=== PATIENT | female | born 1960 | race Two or more races ===

== ENCOUNTER 2020-01-21 06:59 | Inpatient (IN) | payer MEDICAID ==
[2020-01-21] VITALS (16 sets, daily range): BP systolic 111–142; BP diastolic 57–81
[~2020-01-21] VITALS: Ht 157.5 cm; Wt 77.1 kg
[2020-01-21] MEDS ORDERED: Rocuronium Bromide 100mg/10ml Inj IV ONE ×2 (07:16→09:35)
[2020-01-21] MEDS ORDERED: LOSARTAN POTASS50 MG ORAL (08:26)
[2020-01-21] MEDS ORDERED: HYDROCHLOROTH12.5 MG ORAL (08:27)
[2020-01-21] MEDS ORDERED: GLUCOPHAGE500 MG ORAL (08:27)
[2020-01-21] MEDS ORDERED: AMLODIPINE BESY10 MG ORAL (08:28)
[2020-01-21] MEDS ORDERED: ATORVASTATIN CA20 MG ORAL (08:29)
[2020-01-21] MEDS ORDERED: Glycopyrrolate 0.2mg/ml 1ml Vial ONE ×2 (09:00→11:37)
[2020-01-21] MEDS ORDERED: Sterile Water Irrig 1000ml IRRIG ONE (09:00)
[2020-01-21] MEDS ORDERED: LR 1000ml ONE (09:00)
[2020-01-21] MEDS ORDERED: NS Irrig 1000ml ONE (09:00)
[2020-01-21] MEDS ORDERED: Bupivacaine 0.5% Inj 30 ml vial INJ ONE (09:01)
[2020-01-21] MEDS ORDERED: NS Irrig 2000ml IRRIG ONE (09:04)
--- NOTE | 2020-01-21 09:24 | Pre-Procedure Note/Attestation ---
Pre-Procedure Note/Attestation Complete Prior to Procedure Planned Procedure: right Procedure Narrative: laparoscopic radical vs partial nephrectomy right Indications for Procedure Pre-Operative Diagnosis: renal mass Attestation I attest that I discussed the nature of the procedure; its benefits; risks and complications; and alternatives (and the risks and benefits of such alternatives ), prior to the procedure, with the patient (or the patient's legal circulation sales representative). I attest that, if there was a reasonable possibility of needing a blood transfusion, the patient (or the patient's legal circulation sales representative) was given the [facility] standardized written summary, pursuant to the Jorge Medon Blood Safety Act ([place] Health and Safety Code # 1645, as amended). I attest that I re-evaluated the patient just prior to the surgery and that there has been no change in the patient's H&P, except as documented below: Lobito Yoon MD Jan 21, 2020 09:24
[2020-01-21] MEDS ORDERED: Succinylcholine 20mg/ml 10ml vial ONE (09:35)
[2020-01-21] MEDS ORDERED: Morphine Sulfate 10mg/ml Inj ONE (09:35)
[2020-01-21] MEDS ORDERED: Midazolam 2mg/2ml Inj ONE (09:35)
[2020-01-21] MEDS ORDERED: Lidocaine 1% MPF 10mg/ml 5ml ONE (11:37)
[2020-01-21] MEDS ORDERED: ePHEDrine 50mg/ml Inj ONE (11:37)
[2020-01-21] MEDS ORDERED: Metoclopramide 10mg/2ml Inj ONE (11:37)
[2020-01-21] MEDS ORDERED: Phenylephrine 10mg/ml Vial ONE (11:37)
[2020-01-21] MEDS ORDERED: Neostigmine 1mg/ml 10ml Inj ONE (11:37)
--- NOTE | 2020-01-21 12:05 | Anethesia Preoperative Eval ---
Anesthesia Pre-op PMH/ROS General Date of Evaluation: Jan 21, 2020 Time of Evaluation: 09:15 Anesthesiologist: kailey ASA Score: ASA 3 Mallampati Score Class I : Soft palate, uvula, fauces, pillars visible Class II: Soft palate, uvula, fauces visible Class III: Soft palate, base of uvula visible Class IV: Only hard plate visible Mallampati Classification: Class II Surgeon: glynn Diagnosis: renal mass Surgical Procedure: Lap radical nephrectomy Anesthesia History: none Family History: no anesthesia problems Allergies: Coded Allergies: PENICILLINS (Verified Allergy, Severe, Rash;swelling, 01/19/20) Medications: see eMAR Patient NPO?: Yes NPO Date: Jan 21, 2020 NPO Time: 00:01 Past Medical History Cardiovascular: Reports: HTN Pulmonary: Denies: asthma, COPD, ALEX, other Gastrointestinal/Genitourinary: Denies: GERD, CRI, ESRD, other Neurologic/Psychiatric: Denies: dementia, CVA, depression/anxiety, TIA, other Endocrine: Reports: DM; Denies: hypothyroidism, steroids, other HEENT: Denies: cataract (L), cataract (R), glaucoma, [place] (L), [place] (R), other Hematology/Immune: Reports: anemia; Denies: DVT, bleeding disorder, other Musculoskeletal/Integumentary: Denies: OA, RA, DJD, DDD, edema, other Other: obesity PMH Narrative: mediastinal mass Anesthesia Pre-op Phys. Exam Physician Exam Last Vital Signs Date Time Temp Pulse Resp B/P (MAP) Pulse Ox O2 Delivery O2 Flow Rate FiO2 01/21/20 08:20 Room Air 01/21/20 07:32 98.2 106 18 142/81 (101) 99 Constitutional: NAD Neurologic: CN 2-12 intact Cardiovascular: RRR Respiratory: CTA Gastrointestinal: S/NT/ND Airway Exam Mallampati Classification 2 Mallampati Score: Class II Neck: thick ROM: full Teeth: missing Dentures: no upper, no lower Anesthesia Pre-op A/P Labs bs = 98 Studies Pre-op Studies: EKG - SR Risk Assessment & Plan Assessment: mediastinal mass noted on CXR- no sob when lying down, dr. maki is aware Plan: general/T&Cx2 Pre-Antibiotics Drug: ancef Given Within 1 Hr of Incision: Yes Time Given: 09:30 Gabriella Cline COMPRESSION MOLDING MACHINE OPERATOR Jan 21, 2020 12:05
--- NOTE | 2020-01-21 12:05 | Immediate Post-Op Evaluation ---
Immediate Post-Op Evalulation Immediate Post-Op Evalulation Procedure: radical rigtht nephrectomy Date of Evaluation: Jan 21, 2020 Time of Evaluation: 12:04 IV Fluids: 1800 Blood Products: 150 Estimated Blood Loss: 500 Urinary Output: 150 Blood Pressure Systolic: 108 Blood Pressure Diastolic: 60 Pulse Rate: 75 Respiratory Rate: 14 O2 Sat by Pulse Oximetry: 99 Temperature (Fahrenheit): 97.5 Nausea: No Vomiting: No Complications none Patient Status: awake, reacts, patent Hydration Status: adequate Drug: ancef Given Within 1 Hr of Incision: Yes Time Given: 09:30 Gabriella Cline CRNA Jan 21, 2020 12:05
--- NOTE | 2020-01-21 12:23 | Brief Operative Note ---
Immediate Post Operative Note Operative Note Pre-op Diagnosis: renal mass Procedure: Right radical nephrectomy Post-op Diagnosis: same Post-op Diagnosis: same as pre-op Surgeon: Albert Yoon Anesthesia: general Specimen: yes Complications: none Condition: stable Fluids: 1000 Estimated Blood Loss: minimal Drains: none Implant(s) used?: No Lobito Yoon MD Jan 21, 2020 12:23
[2020-01-21] MEDS ORDERED: fentaNYL 100 mcg/2 mL IV PRN (12:29)
[2020-01-21] MEDS ORDERED: Hydromorphone 0.5mg/0.5ml inj IVP PRN (12:30)
--- NOTE | 2020-01-21 13:05 | NUR ---
CASE MANAGEMENT: INITIAL REVIEW 59YR OLD FEMALE HERE FOR ELECTIVE SURGERY CC:RENAL MASS SI:RIGHT RADICAL NEPHRECTOMY 98.2 106 18 142/81 99% ON SIMPLE MASK 6L IS:IVF NS BOLUS X1 IN SURGERY NOW LAPAROSCOPIC RIGHT NEPHRECTOMY \: RECOVERY ROOM
[2020-01-21 13:58] LABS: HEMATOCRIT 35.5 % (37.0-47.0); HEMOGLOBIN 11.7 G/DL (12.0-16.0); MEAN CORPUSCULAR VOLUME 79 FL (80-99); PLATELET COUNT 197 K/UL (150-450); RED CELL DISTRIBUTION WIDTH 13.3 % (11.6-14.8); WHITE BLOOD COUNT 17.6 K/UL (4.8-10.8)
--- NOTE | 2020-01-21 14:06 | NUR ---
*-* INSURANCE *-* ALL CLINICALS AND REVIEWS HAVE BEEN FAXED TO: RENU Claros Ref# [id number] ph#[phone] fax#[phone] & MARINA ph#[phone] fax#[phone]
--- NOTE | 2020-01-21 14:10 | NUR ---
NURSE NOTES: Received patient from PACU. Patient is arousable to hr name but looks lethargic and sleep @ this time. Patient verbally responsive to her name @ this time. Patient is able to make her needs known. Patient said she has mild pain on abdomen. Patient is s/p laparoscopic right nephrostomy, noted with 4 dressings on abdomen, dressing is C/D/I, no visible bleeding. 2 IV's intact, no s/s of infiltration. Fraser 16fr is in place, draining yellowish urine. Skin assessment done, no pressure ulcer, skin break or swelling. No s/s of hypoglycemia. Dr. Desouza was paged to verify home medication and RT was called for IS. V/S stable. Bed is in lowest position and locked. Call light within reach, instructed patient to press call button if needed. Will continue plan of care. Patient's lower partial denture is @ the bedside. home meds brought to the pharmacy. Receipt # [id number]. per report patient received 2 units of PRBC. No s/s of late adverse reaction from blood transfusion.Will continue plan of care.
[2020-01-21 14:36] LABS: ANION GAP 13 mmol/L (5-15); BLOOD UREA NITROGEN 18 mg/dL (7-18); CALCIUM 8.3 MG/DL (8.5-10.1); CARBON DIOXIDE 25 MMOL/L (21-32); CHLORIDE 105 MMOL/L (98-107); CREATININE 1.3 MG/DL (0.55-1.30); POTASSIUM 3.4 MMOL/L (3.5-5.1); SODIUM 143 MMOL/L (136-145)
--- NOTE | 2020-01-21 15:10 | NUR ---
NURSE NOTES: v/S stable. patient is more awake @ this time.Not in respiratory/cardiac distress.
[2020-01-21] MEDS: D5 1/2NS w/KCl 20mEq 1,000 ML IV SCH (16:31)
[2020-01-21] MEDS: ceFAZolin 2gm/50ml Premix 50 ML IV SCH (16:32)
[2020-01-21] MEDS ORDERED: ceFAZolin sod 2 GM in D5W 110 ML IV SCH (17:00)
--- NOTE | 2020-01-21 17:00 | NUR ---
NURSE NOTES: paged Dr. Desouza again to ask if he wants to continue home meds.Awaiting for return call.
[2020-01-21] MEDS: Docusate 100mg cap ORAL SCH (17:45)
[2020-01-21] MEDS: HYDROcodone/Acetamin 5/325 tab ORAL PRN ×2 (17:46→22:07)
--- NOTE | 2020-01-21 17:46 | NUR ---
NURSE NOTES: Patient asked for pain meds. Given PRN pain meds as ordered. Patient is fully awake @ this time. On NPO but tolerated well to po meds.
--- NOTE | 2020-01-21 18:18 | NUR ---
NURSE NOTES: Urine output from murrell is 600,pale yellowish colored urine noted.
--- NOTE | 2020-01-21 19:34 | NUR ---
HAND-OFF: Report given to Oh and endorsed plan of care.
--- NOTE | 2020-01-21 19:35 | NUR ---
NURSE NOTES: Receive a report from NISHANT Mclaughlin. Round is done. Pt is asleep but easily aroused. Tamazight speaking. No acute distress noted. Surgical site dressing kept dry and clean. Yellowish urine is patent via murrell catheter without hematuria or sediments. Call light within reach. Will continue to monitor.
[2020-01-21] MEDS: NovoLOG Insulin Flexpen SUBQ SCH (22:08)
--- NOTE | 2020-01-21 22:30 | Operative Note - Dictated ---
DATE OF OPERATION: 01/21/2020 PREOPERATIVE DIAGNOSIS: Large 10 cm right renal mass. POSTOPERATIVE DIAGNOSIS: Large 10 cm right renal mass. OPERATION: Laparoscopic radical nephrectomy. OPERATED BY: Lobito Yoon MD. ANESTHESIA: General. FINDINGS: Large very vascular renal mass of the right kidney. INDICATIONS FOR SURGERY: Patient most likely has metastatic renal cancer with a very large right renal mass. She had multiple episodes of severe bleeding from the mass and hematuria. She was hospitalized. I discussed with the patient all the treatment options and explained to get a staged approach with first removal of the primary tumor and then possible chemotherapy and immunotherapy by oncologist. She understands the nature of the procedure and this treatment strategy as well as all the risks and potential complications. I have warned her about potential open conversion if the tumor would be very bloody and difficult to resect. She signed a consent. DESCRIPTION OF PROCEDURE: Brought to the operating room, placed in right lateral decubitus position. Prepped and draped in standard fashion. Under general anesthesia, a midline infraumbilical incision was made. A hand port was placed in the standard position and 3 trocars, two 12 and one 5 was placed in the standard position. Pneumoperitoneum was created to 15 mmHg. The limb was retracted with a self-retaining Whit grasper and dissected carefully from the upper pole of the kidney. Dissection started with lower pole mobilizing the ureter, which was clipped and severed with Endo-CATHY. Further dissection behind the kidney towards the psoas muscle was uneventful with electrocautery and clips. Dissection towards the renal pedicle was not complicated. Several additional aberrant large veins including was clipped and severed between hemoclips and then the renal pedicle was mobilized. CATHY 45 vascular was applied. After the pedicle was transected, it was noticed that the CATHY misfired and a distal tip of the clips were not closing the adjacent part of the renal artery. There was some brisk, but not significant bleeding, which was stopped with my finger. We grasper to hold the bleeding vessel. After that, the rest of the kidney was dissected using Endo-CATHY sharp and blunt dissection and removed. After the good exposure of the renal pedicle, it became clear that there was a secondary vessel inside the pedicle that was not transected appropriately with Endo-CATHY. Holding it with a grasper, I oversewn it with multiple [id number] 3-0 Prolene sutures and tied. Bleeding stopped. We spend another 15 minutes looking around deflating pneumoperitoneum to seal and looking if there is any potential for rebleed at that time within 15 to 20 minutes. There was no evidence of further bleeding. There was area of the adrenal that was also giving some hemorrhage. It was clipped and coagulated and bleeding stopped completely. After that, the Surgicel and FloSeal was placed at the area of the adrenal and the pedicle. Further inspection showed no evidence of additional bleeding. Blood loss was approximately 300 mL. Bowel was placed in its normal position and wound was closed with running 0 Vicryl sutures and elizabeth for the skin. Sponge count, instrument count was correct. Lobito Yoon M.D. DR: JOSE JOB#: [id number] CC:
[2020-01-22] VITALS: BP 143/68
[2020-01-22] MEDS: ceFAZolin 2gm/50ml Premix 50 ML IV SCH (01:04)
[2020-01-22] MEDS: D5 1/2NS w/KCl 20mEq 1,000 ML IV SCH ×3 (02:35→22:28)
[2020-01-22 04:00] VITALS: BP 138/73
--- NOTE | 2020-01-22 06:00 | NUR ---
NURSE NOTES: No acute distress noted. Pt got one time of pain medication, one time of Zofran and a sleeping pill overnight. Surgical site dressing kept dry and clean. Will continue to monitor. 12hr urine output: 1350ml
[2020-01-22 06:26] LABS: BASOPHILS % (AUTO) 0.2 % (0.0-2.0); HEMATOCRIT 36.1 % (37.0-47.0); HEMOGLOBIN 12.1 G/DL (12.0-16.0); LYMPHOCYTES % (AUTO) 11.4 % (20.0-45.0); MEAN CORPUSCULAR VOLUME 78 FL (80-99); MONOCYTES % (AUTO) 7.7 % (1.0-10.0); NEUTROPHILS % (AUTO) 80.8 % (45.0-75.0); PLATELET COUNT 179 K/UL (150-450); RED BLOOD COUNT 4.64 M/UL (4.20-5.40); RED CELL DISTRIBUTION WIDTH 12.9 % (11.6-14.8); WHITE BLOOD COUNT 9.8 K/UL (4.8-10.8)
[2020-01-22 06:59] LABS: ANION GAP 12 mmol/L (5-15); BLOOD UREA NITROGEN 9 mg/dL (7-18); CALCIUM 8.5 MG/DL (8.5-10.1); CARBON DIOXIDE 26 MMOL/L (21-32); CHLORIDE 100 MMOL/L (98-107); CREATININE 1.1 MG/DL (0.55-1.30); POTASSIUM 3.1 MMOL/L (3.5-5.1); SODIUM 138 MMOL/L (136-145)
[2020-01-22] MEDS: NovoLOG Insulin Flexpen SUBQ SCH ×4 (07:04→21:00)
--- NOTE | 2020-01-22 07:15 | NUR ---
HAND-OFF: Report given to NISHANT Crawford. Round is done.
--- NOTE | 2020-01-22 07:30 | NUR ---
NURSE NOTES: Handoff received from O RN. Patient is awake and alert, reports 3/10 pain, will medicate as ordered. Dressings are dry and intact. Left hand IV is patent and asymptomatic, running IVF as ordered. Fraser catheter is patent and draining to gravity. Patient encouraged to use IS at bedside. Oral care provided. Bed is low and locked, side rails up x2, call light is within reach.
[2020-01-22 08:00] VITALS: BP 126/70
[2020-01-22] MEDS: Docusate 100mg cap ORAL SCH ×2 (08:05→18:00)
[2020-01-22] MEDS: HYDROcodone/Acetamin 5/325 tab ORAL PRN ×2 (08:06→15:03)
--- NOTE | 2020-01-22 08:37 | 48 Hour Post Anesthesia Eval ---
Post Anesthesia Evaluation Procedure: radical rigtht nephrectomy Date of Evaluation: Jan 22, 2020 Time of Evaluation: 08:37 Blood Pressure Systolic: 138 0: 70 Pulse Rate: 65 Respiratory Rate: 14 O2 Sat by Pulse Oximetry: 99 Airway: patent Nausea: No Vomiting: No Pain Intensity: 4 Hydration Status: adequate Cardiopulmonary Status: stable Mental Status/LOC: patient returned to baseline Post-Anesthesia Complications: none Follow-up care needed: N/A Gabriella Cline CRNA Jan 22, 2020 08:37
[2020-01-22] MEDS ORDERED: DiphenhydrAMINE 50mg/ml Inj IVP PRN (10:15)
[2020-01-22 12:00] VITALS: BP 131/72
[2020-01-22 16:00] VITALS: BP 129/80
--- NOTE | 2020-01-22 16:01 | NUR ---
CASE MANAGEMENT: REVIEW 01/22/20 SI:S/P RIGHT RADICAL NEPHRECTOMY 99.2 80 20 131/72 97% ON RA IS:IV D5@100ML/HR NORCO PO Q4HR/PRN \: 3E MED SURG UNIT PLAN: START ON CLEARS DC GUILLEN ADVANCE DIET TOLERATE
--- NOTE | 2020-01-22 16:35 | Consultation ---
History of Present Illness General Date patient seen: Jan 22, 2020 Present Illness HPI 59 year old female s/p right radical nephrectomy currently admitted for post op noted to have leukocytosis, pain, and decreased appetite. surgery called to evaluate post op. patient seen, chart reviewed, patient examined. no emesis. not hungry. no flatus. no bm. abd examined. labs noted. h/h noted Allergies: Coded Allergies: PENICILLINS (Verified Allergy, Severe, Rash;swelling, 01/19/20) COVID-19 Screening Contact w/high risk pt: No Recent Travel to affected area: No Experienced COVID-19 symptoms?: No Medication History Scheduled Amlodipine Besylate* (Amlodipine Besylate*), 10 MG ORAL DAILY, (Reported) Atorvastatin Calcium* (Atorvastatin Calcium*), 10 MG ORAL BEDTIME, (Reported) Hydrochlorothiazide* (Hydrochlorothiazide*), 12.5 MG ORAL DAILY, (Reported) Losartan Potassium* (Losartan Potassium*), 100 MG ORAL DAILY, (Reported) Metformin Hcl* (Glucophage*), 500 MG ORAL TWICE A DAY, (Reported) Patient History History Provided By: Patient, Medical Record, PMD Healthcare decision maker N Resuscitation status Advanced Directive on File Past Medical/Surgical History Past Medical/Surgical History: (1) Right renal mass Review of Systems Review of Symptoms General ROS: no weight loss or fever Psychological ROS: no depression or mood changes, no memory loss Ophthalmic ROS: no visual changes or eye irritation ENT ROS: no nasal congestion, hearing loss, dizziness Allergy and Immunology ROS: no allergic symptoms or urticaria Hematological and Lymphatic ROS: no swollen glands, unusual bleeding or bruising Endocrine ROS: no polyuria, polydipsia, weight changes, temperature intolerance Respiratory ROS: no cough, shortness of breath, or wheezing Cardiovascular ROS: no chest pain or dyspnea on exertion Gastrointestinal ROS: abdominal pain, bright red blood in stool. Musculoskeletal ROS: no myalgias or arthralgias Neurological ROS: no TIA or stroke symptoms Dermatological ROS: no new or changing skin lesions, rashes or pruritis Physical Exam Physical Exam General appearance: alert, cooperative, no distress, appears stated age Head: Normocephalic, without obvious abnormality, atraumatic Eyes: conjunctivae/corneas clear. PERRL, EOM's intact. Fundi benign Throat: Lips, mucosa, and tongue normal. Teeth and gums normal Neck: supple, symmetrical, trachea midline, no adenopathy, thyroid: not enlarged, symmetric, no tenderness/mass/nodules, no carotid bruit and no JVD Lungs: clear to auscultation bilaterally Heart: regular rate and rhythm, S1, S2 normal, no murmur, click, rub or gallop Abdomen: soft, mild tender. Bowel sounds decreased . No masses, no organomegaly mild distended Extremities: extremities normal, atraumatic, no cyanosis or edema Pulses: 2+ and symmetric Skin: Skin color, texture, turgor normal. No rashes or lesions Neurologic: Grossly normal Last 24 Hour Vital Signs Date Time Temp Pulse Resp B/P (MAP) Pulse Ox O2 Delivery O2 Flow Rate FiO2 01/22/20 12:00 99.2 80 20 131/72 (91) 94 01/22/20 09:00 Room Air 01/22/20 08:37 65 14 99 01/22/20 08:36 98.7 01/22/20 08:00 99.0 73 18 126/70 (88) 95 01/22/20 04:00 98.7 66 18 138/73 (94) 96 01/22/20 00:00 98.8 70 18 143/68 (93) 95 01/21/20 21:00 Nasal Cannula 2.0 01/21/20 20:00 98.3 73 18 141/75 (97) 97 Intake and Output 01/21/20 01/22/20 19:00 07:00 Intake Total 2600 ml 1200 ml Output Total 1550 ml Balance 1050 ml 1200 ml Intake Oral 0 ml IV Total 2100 ml 1200 ml Blood Product 500 ml Output Urine Total 1050 ml Estimated Blood Loss 500 ml # Voids 1 Laboratory Tests Test 01/22/20 05:15 White Blood Count 9.8 K/UL (4.8-10.8) Red Blood Count 4.64 M/UL (4.20-5.40) Hemoglobin 12.1 G/DL (12.0-16.0) Hematocrit 36.1 % (37.0-47.0) L Mean Corpuscular Volume 78 FL (80-99) L Mean Corpuscular Hemoglobin 26.0 PG (27.0-31.0) L Mean Corpuscular Hemoglobin Concent 33.4 G/DL (32.0-36.0) Red Cell Distribution Width 12.9 % (11.6-14.8) Platelet Count 179 K/UL (150-450) Mean Platelet Volume 8.8 FL (6.5-10.1) Neutrophils (%) (Auto) 80.8 % (45.0-75.0) H Lymphocytes (%) (Auto) 11.4 % (20.0-45.0) L Monocytes (%) (Auto) 7.7 % (1.0-10.0) Eosinophils (%) (Auto) 0.0 % (0.0-3.0) Basophils (%) (Auto) 0.2 % (0.0-2.0) Sodium Level 138 MMOL/L (136-145) Potassium Level 3.1 MMOL/L (3.5-5.1) L Chloride Level 100 MMOL/L (98-107) Carbon Dioxide Level 26 MMOL/L (21-32) Anion Gap 12 mmol/L (5-15) Blood Urea Nitrogen 9 mg/dL (7-18) Creatinine 1.1 MG/DL (0.55-1.30) Estimat Glomerular Filtration Rate 50.8 mL/min (>60) Glucose Level 150 MG/DL (74-106) H Calcium Level 8.5 MG/DL (8.5-10.1) Height (Feet): 5 Height (Inches): 2.00 Weight (Pounds): 170 Medications Current Medications Medications (Trade) Dose Ordered Sig/[place] Route PRN Reason Start Time Stop Time Status Last Admin Dose Admin Acetaminophen (Tylenol) 650 mg Q4H PRN ORAL FEVER 01/21/20 14:25 02/20/20 14:24 Acetaminophen (Tylenol) 650 mg Q6H PRN ORAL Mild Pain (Pain Scale 1-3) 01/21/20 14:25 02/20/20 14:24 Acetaminophen/ Hydrocodone Bitart ([place]den 5/325) 1 tab Q4H PRN ORAL Moderate Pain (Pain Scale 4-6) 01/21/20 14:26 01/28/20 14:25 01/22/20 15:03 Dextrose (Dextrose 50%) 25 ml Q30M PRN IV Hypoglycemia 01/21/20 21:15 04/20/20 21:14 Dextrose (Dextrose 50%) 50 ml Q30M PRN IV Hypoglycemia 01/21/20 21:15 04/20/20 21:14 Dextrose/ Electrolytes 1,000 ml @ 100 mls/hr Q10H IV 01/21/20 16:00 02/20/20 15:59 01/22/20 12:54 Diphenhydramine HCl (Benadryl) 25 mg Q6H PRN IVP Itching 01/22/20 10:15 02/21/20 10:14 01/22/20 11:10 Docusate Sodium (Colace) 100 mg TWICE A DAY ORAL 01/21/20 18:00 02/20/20 17:59 01/22/20 08:05 Hydromorphone HCl (Dilaudid) 2 mg Q3H PRN IVP pain score 7-10 01/21/20 14:26 01/28/20 14:25 Insulin Aspart (NovoLOG) BEFORE MEALS AND HS SUBQ 01/21/20 22:00 04/20/20 21:59 01/22/20 07:04 Ondansetron HCl (Zofran) 4 mg Q6H PRN IVP Nausea & Vomiting 01/21/20 14:25 02/20/20 14:24 01/22/20 01:59 Temazepam (RestoriL) 7.5 mg QHS PRN ORAL Insomnia 01/21/20 21:00 01/28/20 20:59 01/22/20 02:34 Assessment/Plan Problem List: (1) Right renal mass Assessment & Plan: 59 year old female s/p radical right nephrectomy for mass pending path c/o abd pain decreased appetite exam noted patient not motivated to move much post op will encourage ambulation and incentive spirometry d/c okay trial oral intake trend labs rx as written complaints anticipated post op will follow closely thank you ICD Codes: N28.89 - Other specified disorders of kidney and ureter SNOMED: [id number] Vladimir Payton Jan 22, 2020 16:35
--- NOTE | 2020-01-22 16:59 | NUR ---
*-* INSURANCE *-* UPDATED CLINICALS AND REVIEWS HAVE BEEN FAXED TO: RENU Claros Ref# [id number] ph#[phone] fax#[phone] & MARINA ph#[phone] fax#[phone]
--- NOTE | 2020-01-22 19:45 | Consultation ---
DATE OF CONSULTATION: 01/22/2020 INTERNAL MEDICINE CONSULTATION CONSULTING PHYSICIAN: Srini Desouza MD. HISTORY OF PRESENT ILLNESS: This is a 59-year-old female who has undergone a nephrectomy by Dr. Yoon. She was uncomplicated. She is doing well in the medical floor. She is only Bulgarian-speaking. PAST MEDICAL HISTORY: Hypertension, hyperlipidemia, diabetes mellitus. HOME MEDICATIONS: Amlodipine, Lipitor, hydrochlorothiazide, losartan, and metformin. ALLERGIES: To penicillin. REVIEW OF SYSTEMS: Denies any headaches, hematemesis, melena, hematochezia, night sweats, or weight loss. PHYSICAL EXAMINATION: GENERAL: Reveals a 59-year-old female. HEENT: Unremarkable. LUNGS: Clear breath sounds bilaterally. ABDOMEN: Soft. EXTREMITIES: There is no edema. VITAL SIGNS: Blood pressure 120/70, heart rate 84, respirations , she is afebrile. LABORATORY DATA: Lab testing shows hemoglobin of 12, otherwise normal CBC and BMP. Creatinine 1.1. IMPRESSION: 1. Postoperative day #1, status post nephrectomy. 2. Hypertension. 3. Diabetes mellitus. 4. Anemia. DISCUSSION: Continue postoperative care. Diabetes monitoring. We will add Benadryl. We will follow. Srini Desouza M.D. DR: JILLIAN JOB#: [id number] CC:
--- NOTE | 2020-01-22 19:48 | NUR ---
NURSE NOTES: Report received from NISHANT Monte. Patient in stable condition.
[2020-01-22 20:00] VITALS: BP 131/65
[2020-01-23] VITALS: BP 124/71
[2020-01-23 04:00] VITALS: BP 130/68
[2020-01-23] MEDS: NovoLOG Insulin Flexpen SUBQ SCH ×4 (06:30→21:00)
--- NOTE | 2020-01-23 06:59 | NUR ---
NURSE NOTES: Patient was able to ambulate with walker and standby assist. Voiding okay. Total urine output was 700mL, dark zofia urine. Patient denies any pain. Patient seen using the incentive spirometer frequently throughout the night. Patient is now sitting in a chair. Encouraged ambulation as much as possible. Pain controlled well with Dilaudid.
--- NOTE | 2020-01-23 07:32 | NUR ---
NURSE NOTES: Report given to Sonia DILLARD
--- NOTE | 2020-01-23 07:39 | NUR ---
NURSE NOTES: Received report from Felipe Rn, rounds made, pt stable ,up in chair,c/o of pain 12/27, will provide medication as ordered , pt has LT hand 18G with IVF, intact asymptomatic , call light with in reach, will continue with paln of care
[2020-01-23] MEDS: Docusate 100mg cap ORAL SCH ×2 (07:55→17:16)
[2020-01-23] MEDS: D5 1/2NS w/KCl 20mEq 1,000 ML IV SCH ×3 (07:55→23:00)
[2020-01-23 08:00] VITALS: BP 138/66
[2020-01-23 09:10] LABS: BASOPHILS % (AUTO) 0.5 % (0.0-2.0); HEMATOCRIT 33.7 % (37.0-47.0); HEMOGLOBIN 11.3 G/DL (12.0-16.0); LYMPHOCYTES % (AUTO) 11.9 % (20.0-45.0); MEAN CORPUSCULAR VOLUME 77 FL (80-99); MONOCYTES % (AUTO) 9.2 % (1.0-10.0); NEUTROPHILS % (AUTO) 77.4 % (45.0-75.0); PLATELET COUNT 160 K/UL (150-450); RED BLOOD COUNT 4.36 M/UL (4.20-5.40); RED CELL DISTRIBUTION WIDTH 12.9 % (11.6-14.8); WHITE BLOOD COUNT 10.1 K/UL (4.8-10.8)
[2020-01-23 09:32] LABS: ANION GAP 9 mmol/L (5-15); BLOOD UREA NITROGEN 5 mg/dL (7-18); CALCIUM 8.5 MG/DL (8.5-10.1); CARBON DIOXIDE 26 MMOL/L (21-32); CHLORIDE 102 MMOL/L (98-107); POTASSIUM 3.2 MMOL/L (3.5-5.1); SODIUM 137 MMOL/L (136-145)
--- NOTE | 2020-01-23 11:25 | NUR ---
*-* INSURANCE *-* UPDATED CLINICALS AND REVIEWS HAVE BEEN FAXED TO: RENU Claros Ref# [id number] ph#[phone] fax#[phone] & MARINA ph#[phone] fax#[phone]
--- NOTE | 2020-01-23 11:57 | Pulmonology Progress Note ---
Subjective Interval Events: None new Constitutional: Reports: no symptoms HEENT: Repors: no symptoms Respiratory: Reports: no symptoms Cardiovascular: Reports: no symptoms Gastrointestinal/Abdominal: Reports: no symptoms Allergies: Coded Allergies: PENICILLINS (Verified Allergy, Severe, Rash;swelling, 01/19/20) Objective Last 24 Hour Vital Signs Date Time Temp Pulse Resp B/P (MAP) Pulse Ox O2 Delivery O2 Flow Rate FiO2 01/23/20 09:00 Room Air 01/23/20 08:00 99.7 76 20 138/66 (90) 94 01/23/20 04:00 98.5 73 20 130/68 (88) 99 01/23/20 01:33 99.6 01/23/20 00:00 98.2 81 21 124/71 (88) 94 01/22/20 21:00 Room Air 01/22/20 20:00 99.6 74 19 131/65 (87) 94 01/22/20 16:00 98.8 83 18 129/80 (96) 94 01/22/20 12:00 99.2 80 20 131/72 (91) 94 Intake and Output 01/22/20 01/23/20 19:00 07:00 Output Total 950 ml Balance -950 ml Output Urine Total 950 ml General Appearance: no acute distress HEENT: normocephalic Respiratory: chest wall non-tender Cardiovascular: normal peripheral pulses Abdomen: normal bowel sounds Microbiology Date/Time Source Procedure Growth Status 01/21/20 07:45 Nasal Nares MRSA Culture - Final NO METHICILLIN RESISTANT STAPH AUREUS... Complete Laboratory Tests 01/23/20 08:30: White Blood Count 10.1, Red Blood Count 4.36, Hemoglobin 11.3L, Hematocrit 33.7L , Mean Corpuscular Volume 77L, Mean Corpuscular Hemoglobin 25.9L, Mean Corpuscular Hemoglobin Concent 33.5, Red Cell Distribution Width 12.9, Platelet Count 160, Mean Platelet Volume 8.4, Neutrophils (%) (Auto) 77.4H, Lymphocytes ( %) (Auto) 11.9L, Monocytes (%) (Auto) 9.2, Eosinophils (%) (Auto) 1.0, Basophils (%) (Auto) 0.5, Sodium Level 137, Potassium Level 3.2L, Chloride Level 102, Carbon Dioxide Level 26, Anion Gap 9, Blood Urea Nitrogen 5L, Creatinine 1.0, Estimat Glomerular Filtration Rate 56.8, Glucose Level 137H, Calcium Level 8.5 Current Medications Medications (Trade) Dose Ordered Sig/[place] Route PRN Reason Start Time Stop Time Status Last Admin Dose Admin Acetaminophen (Tylenol) 650 mg Q4H PRN ORAL FEVER 01/21/20 14:25 02/20/20 14:24 Acetaminophen (Tylenol) 650 mg Q6H PRN ORAL Mild Pain (Pain Scale 1-3) 01/21/20 14:25 02/20/20 14:24 Acetaminophen/ Hydrocodone Bitart ([place] 5/325) 1 tab Q4H PRN ORAL Moderate Pain (Pain Scale 4-6) 01/21/20 14:26 01/28/20 14:25 01/22/20 15:03 Dextrose (Dextrose 50%) 25 ml Q30M PRN IV Hypoglycemia 01/21/20 21:15 04/20/20 21:14 Dextrose (Dextrose 50%) 50 ml Q30M PRN IV Hypoglycemia 01/21/20 21:15 04/20/20 21:14 Dextrose/ Electrolytes 1,000 ml @ 100 mls/hr Q10H IV 01/21/20 16:00 02/20/20 15:59 01/23/20 07:55 Diphenhydramine HCl (Benadryl) 25 mg Q6H PRN IVP Itching 01/22/20 10:15 02/21/20 10:14 01/22/20 11:10 Docusate Sodium (Colace) 100 mg TWICE A DAY ORAL 01/21/20 18:00 02/20/20 17:59 01/23/20 07:55 Hydromorphone HCl (Dilaudid) 2 mg Q3H PRN IVP pain score 7-10 01/21/20 14:26 01/28/20 14:25 01/23/20 07:56 Insulin Aspart (NovoLOG) BEFORE MEALS AND HS SUBQ 01/21/20 22:00 04/20/20 21:59 01/22/20 07:04 Ondansetron HCl (Zofran) 4 mg Q6H PRN IVP Nausea & Vomiting 01/21/20 14:25 02/20/20 14:24 01/23/20 04:37 Temazepam (RestoriL) 7.5 mg QHS PRN ORAL Insomnia 01/21/20 21:00 01/28/20 20:59 01/22/20 02:34 Assessment/Plan Assessment/Plan IMPRESSION: 1. Postoperative day #2, status post nephrectomy. 2. Hypertension. 3. Diabetes mellitus. 4. Anemia. DISCUSSION: Continue postoperative care. Diabetes monitoring. I will follow. Diet per surgery Laney Queen Omar Syed MD Jan 23, 2020 11:57
[2020-01-23 12:00] VITALS: BP 129/70
--- NOTE | 2020-01-23 12:53 | NUR ---
CASE MANAGEMENT: REVIEW 01/23/20 SI:S/P RIGHT RADICAL NEPHRECTOMY 99.7 76 20 138/66 94% ON RA K+3.2 BUN 5 BG 137 IS:IV D5@100ML/HR NORCO PO Q4HR/PRN BENADRYL PO Q6HR/PRN \: 3E MED SURG UNIT PLAN: ADVANCE DIET TOLERATE
--- NOTE | 2020-01-23 14:50 | Surgery Progress Note ---
Surgery Progress Note Subjective Additional Comments still with abd pain but improved nausea with pain meds tolerating clears labs noted not ready for d/c Objective Last 24 Hour Vital Signs Date Time Temp Pulse Resp B/P (MAP) Pulse Ox O2 Delivery O2 Flow Rate FiO2 01/23/20 12:00 98.2 66 20 129/70 (89) 94 01/23/20 09:00 Room Air 01/23/20 08:00 99.7 76 20 138/66 (90) 94 01/23/20 04:00 98.5 73 20 130/68 (88) 99 01/23/20 01:33 99.6 01/23/20 00:00 98.2 81 21 124/71 (88) 94 01/22/20 21:00 Room Air 01/22/20 20:00 99.6 74 19 131/65 (87) 94 01/22/20 16:00 98.8 83 18 129/80 (96) 94 I&O Intake and Output 01/22/20 01/23/20 18:59 06:59 Intake Total 100 ml Output Total 950 ml Balance -850 ml IV Total 100 ml Output Urine Total 950 ml Dressing: dry Wound: clean Cardiovascular: RSR Respiratory: clear Abdomen: soft, tenderness, non-distended, decreased bowel sounds Extremities: no tenderness, no cyanosis Laboratory Tests Test 01/23/20 08:30 White Blood Count 10.1 K/UL (4.8-10.8) Red Blood Count 4.36 M/UL (4.20-5.40) Hemoglobin 11.3 G/DL (12.0-16.0) L Hematocrit 33.7 % (37.0-47.0) L Mean Corpuscular Volume 77 FL (80-99) L Mean Corpuscular Hemoglobin 25.9 PG (27.0-31.0) L Mean Corpuscular Hemoglobin Concent 33.5 G/DL (32.0-36.0) Red Cell Distribution Width 12.9 % (11.6-14.8) Platelet Count 160 K/UL (150-450) Mean Platelet Volume 8.4 FL (6.5-10.1) Neutrophils (%) (Auto) 77.4 % (45.0-75.0) H Lymphocytes (%) (Auto) 11.9 % (20.0-45.0) L Monocytes (%) (Auto) 9.2 % (1.0-10.0) Eosinophils (%) (Auto) 1.0 % (0.0-3.0) Basophils (%) (Auto) 0.5 % (0.0-2.0) Sodium Level 137 MMOL/L (136-145) Potassium Level 3.2 MMOL/L (3.5-5.1) L Chloride Level 102 MMOL/L (98-107) Carbon Dioxide Level 26 MMOL/L (21-32) Anion Gap 9 mmol/L (5-15) Blood Urea Nitrogen 5 mg/dL (7-18) L Creatinine 1.0 MG/DL (0.55-1.30) Estimat Glomerular Filtration Rate 56.8 mL/min (>60) Glucose Level 137 MG/DL (74-106) H Calcium Level 8.5 MG/DL (8.5-10.1) Plan Problems: (1) Right renal mass Assessment & Plan: 59 year old female s/p radical right nephrectomy for mass pending path c/o abd pain decreased appetite exam noted patient not motivated to move much post op will encourage ambulation and incentive spirometry d/c okay trial oral intake trend labs rx as written complaints anticipated post op will follow closely thank you murrell out ambulatory tolerating clears not ready for d/c needs better pain control Vladimir Payton Jan 23, 2020 14:50
[2020-01-23 16:00] VITALS: BP 137/79
[2020-01-23] MEDS: HYDROcodone/Acetamin 5/325 tab ORAL PRN ×2 (17:16→21:47)
--- NOTE | 2020-01-23 19:43 | NUR ---
HAND-OFF: Report given to Felipe RN, pt stable
--- NOTE | 2020-01-23 19:48 | NUR ---
NURSE NOTES: Report received from NISHANT Scott. Patient in stable condition. Seen sitting at the bed, using incentive spirometer. Patient reports that pain is well controlled with current pain medication.
[2020-01-23 20:00] VITALS: BP 132/73
[2020-01-24] VITALS: BP 143/73
[2020-01-24] MEDS: HYDROcodone/Acetamin 5/325 tab ORAL PRN ×3 (02:48→21:00)
[2020-01-24 04:00] VITALS: BP 134/74
[2020-01-24] MEDS: NovoLOG Insulin Flexpen SUBQ SCH ×4 (06:30→21:00)
[2020-01-24 07:06] LABS: ANION GAP 7 mmol/L (5-15); CALCIUM 8.7 MG/DL (8.5-10.1); CARBON DIOXIDE 29 MMOL/L (21-32); CHLORIDE 106 MMOL/L (98-107); CREATININE 0.9 MG/DL (0.55-1.30); POTASSIUM 3.7 MMOL/L (3.5-5.1); SODIUM 142 MMOL/L (136-145)
--- NOTE | 2020-01-24 07:07 | NUR ---
HAND-OFF: Report given to NISHANT Scott. Patient in stable condition. Ambulates with front wheel walker, steady gait with standby assist.
[2020-01-24 07:14] LABS: BASOPHILS % (AUTO) 0.6 % (0.0-2.0); HEMATOCRIT 31.9 % (37.0-47.0); HEMOGLOBIN 10.6 G/DL (12.0-16.0); LYMPHOCYTES % (AUTO) 23.3 % (20.0-45.0); MEAN CORPUSCULAR VOLUME 78 FL (80-99); MONOCYTES % (AUTO) 10.2 % (1.0-10.0); NEUTROPHILS % (AUTO) 62.8 % (45.0-75.0); PLATELET COUNT 171 K/UL (150-450); WHITE BLOOD COUNT 7.9 K/UL (4.8-10.8)
[2020-01-24 07:17] LABS: BLOOD UREA NITROGEN 6 mg/dL (7-18)
--- NOTE | 2020-01-24 07:39 | NUR ---
NURSE NOTES: Received report from Felipe Rn, rounds made, pt remains stable, in bed , having break fast denies any pain , pt has LT hand 18G with IVF, intact asymptomatic , call light with in reach, will continue with plan of care
[2020-01-24 08:00] VITALS: BP 121/64
--- NOTE | 2020-01-24 08:40 | Pulmonology Progress Note ---
Subjective Interval Events: None new Constitutional: Reports: no symptoms HEENT: Repors: no symptoms Respiratory: Reports: no symptoms Cardiovascular: Reports: no symptoms Gastrointestinal/Abdominal: Reports: no symptoms Allergies: Coded Allergies: PENICILLINS (Verified Allergy, Severe, Rash;swelling, 01/19/20) Objective Last 24 Hour Vital Signs Date Time Temp Pulse Resp B/P (MAP) Pulse Ox O2 Delivery O2 Flow Rate FiO2 01/24/20 04:00 98.2 63 22 134/74 (94) 100 01/24/20 03:18 98.8 01/24/20 00:00 98.8 55 20 143/73 (96) 100 01/23/20 21:00 Room Air 01/23/20 20:00 99.7 59 20 132/73 (92) 96 01/23/20 16:00 99.4 79 20 137/79 (98) 94 01/23/20 12:00 98.2 66 20 129/70 (89) 94 01/23/20 09:00 Room Air Intake and Output 01/23/20 01/24/20 19:00 07:00 Intake Total 1720 ml Balance 1720 ml Intake Oral 720 ml IV Total 1000 ml # Voids 3 General Appearance: no acute distress HEENT: normocephalic Respiratory: chest wall non-tender Cardiovascular: normal peripheral pulses Abdomen: normal bowel sounds Laboratory Tests 01/24/20 05:20: White Blood Count 7.9, Red Blood Count 4.10L, Hemoglobin 10.6L, Hematocrit 31.9L , Mean Corpuscular Volume 78L, Mean Corpuscular Hemoglobin 25.8L, Mean Corpuscular Hemoglobin Concent 33.1, Red Cell Distribution Width 13.0, Platelet Count 171, Mean Platelet Volume 9.1, Neutrophils (%) (Auto) 62.8, Lymphocytes (% ) (Auto) 23.3, Monocytes (%) (Auto) 10.2H, Eosinophils (%) (Auto) 3.0, Basophils (%) (Auto) 0.6, Sodium Level 142, Potassium Level 3.7, Chloride Level 106, Carbon Dioxide Level 29, Anion Gap 7, Blood Urea Nitrogen 6L, Creatinine 0.9, Estimat Glomerular Filtration Rate > 60, Glucose Level 106, Calcium Level 8.7 Current Medications Medications (Trade) Dose Ordered Sig/[place] Route PRN Reason Start Time Stop Time Status Last Admin Dose Admin Acetaminophen (Tylenol) 650 mg Q4H PRN ORAL FEVER 01/21/20 14:25 02/20/20 14:24 Acetaminophen (Tylenol) 650 mg Q6H PRN ORAL Mild Pain (Pain Scale 1-3) 01/21/20 14:25 02/20/20 14:24 Acetaminophen/ Hydrocodone Bitart ([place] 5/325) 1 tab Q4H PRN ORAL Moderate Pain (Pain Scale 4-6) 01/21/20 14:26 01/28/20 14:25 01/24/20 02:48 Dextrose (Dextrose 50%) 25 ml Q30M PRN IV Hypoglycemia 01/21/20 21:15 04/20/20 21:14 Dextrose (Dextrose 50%) 50 ml Q30M PRN IV Hypoglycemia 01/21/20 21:15 04/20/20 21:14 Dextrose/ Electrolytes 1,000 ml @ 100 mls/hr Q10H IV 01/21/20 16:00 02/20/20 15:59 01/23/20 23:00 Diphenhydramine HCl (Benadryl) 25 mg Q6H PRN IVP Itching 01/22/20 10:15 02/21/20 10:14 01/22/20 11:10 Docusate Sodium (Colace) 100 mg TWICE A DAY ORAL 01/21/20 18:00 02/20/20 17:59 01/23/20 17:16 Hydromorphone HCl (Dilaudid) 2 mg Q3H PRN IVP pain score 7-10 01/21/20 14:26 01/28/20 14:25 01/23/20 07:56 Insulin Aspart (NovoLOG) BEFORE MEALS AND HS SUBQ 01/21/20 22:00 04/20/20 21:59 01/22/20 07:04 Ondansetron HCl (Zofran) 4 mg Q6H PRN IVP Nausea & Vomiting 01/21/20 14:25 02/20/20 14:24 01/23/20 04:37 Temazepam (RestoriL) 7.5 mg QHS PRN ORAL Insomnia 01/21/20 21:00 01/28/20 20:59 01/23/20 22:58 Assessment/Plan Assessment/Plan IMPRESSION: 1. Postoperative day #3, status post nephrectomy. 2. Hypertension. 3. Diabetes mellitus. 4. Anemia. DISCUSSION: Continue postoperative care. Diabetes monitoring. I will follow. Diet per surgery Laney Queen Omar Syed MD Jan 24, 2020 08:40
[2020-01-24] MEDS: Docusate 100mg cap ORAL SCH ×2 (09:29→18:37)
[2020-01-24 12:00] VITALS: BP 143/74
--- NOTE | 2020-01-24 13:56 | Surgery Progress Note ---
Surgery Progress Note Subjective Additional Comments still with pain no ready to go home ambulatory slowly tolerating diet nausea Objective Last 24 Hour Vital Signs Date Time Temp Pulse Resp B/P (MAP) Pulse Ox O2 Delivery O2 Flow Rate FiO2 01/24/20 12:00 99.0 57 19 143/74 (97) 97 01/24/20 09:00 Room Air 01/24/20 08:00 97.1 66 20 121/64 (83) 97 01/24/20 04:00 98.2 63 22 134/74 (94) 100 01/24/20 03:18 98.8 01/24/20 00:00 98.8 55 20 143/73 (96) 100 01/23/20 21:00 Room Air 01/23/20 20:00 99.7 59 20 132/73 (92) 96 01/23/20 16:00 99.4 79 20 137/79 (98) 94 I&O Intake and Output 01/23/20 01/24/20 19:00 07:00 Intake Total 1720 ml Balance 1720 ml Intake Oral 720 ml IV Total 1000 ml # Voids 3 Wound: clean, dry Cardiovascular: RSR Respiratory: clear Abdomen: soft, tenderness, decreased bowel sounds Extremities: no edema, no tenderness, no cyanosis Laboratory Tests Test 01/24/20 05:20 White Blood Count 7.9 K/UL (4.8-10.8) Red Blood Count 4.10 M/UL (4.20-5.40) L Hemoglobin 10.6 G/DL (12.0-16.0) L Hematocrit 31.9 % (37.0-47.0) L Mean Corpuscular Volume 78 FL (80-99) L Mean Corpuscular Hemoglobin 25.8 PG (27.0-31.0) L Mean Corpuscular Hemoglobin Concent 33.1 G/DL (32.0-36.0) Red Cell Distribution Width 13.0 % (11.6-14.8) Platelet Count 171 K/UL (150-450) Mean Platelet Volume 9.1 FL (6.5-10.1) Neutrophils (%) (Auto) 62.8 % (45.0-75.0) Lymphocytes (%) (Auto) 23.3 % (20.0-45.0) Monocytes (%) (Auto) 10.2 % (1.0-10.0) H Eosinophils (%) (Auto) 3.0 % (0.0-3.0) Basophils (%) (Auto) 0.6 % (0.0-2.0) Sodium Level 142 MMOL/L (136-145) Potassium Level 3.7 MMOL/L (3.5-5.1) Chloride Level 106 MMOL/L (98-107) Carbon Dioxide Level 29 MMOL/L (21-32) Anion Gap 7 mmol/L (5-15) Blood Urea Nitrogen 6 mg/dL (7-18) L Creatinine 0.9 MG/DL (0.55-1.30) Estimat Glomerular Filtration Rate > 60 mL/min (>60) Glucose Level 106 MG/DL (74-106) Calcium Level 8.7 MG/DL (8.5-10.1) Plan Problems: (1) Right renal mass Assessment & Plan: 59 year old female s/p radical right nephrectomy for mass pending path c/o abd pain decreased appetite exam noted patient not motivated to move much post op will encourage ambulation and incentive spirometry d/c okay trial oral intake trend labs rx as written complaints anticipated post op will follow closely thank you murrell out ambulatory tolerating clears not ready for d/c needs better pain control Vladimir Payton Jan 24, 2020 13:56
[2020-01-24] MEDS: D5 1/2NS w/KCl 20mEq 1,000 ML IV SCH ×2 (14:00→16:33)
--- NOTE | 2020-01-24 14:26 | NUR ---
CASE MANAGEMENT:REVIEW SI;POD#1 RADICAL RT NEPHRECTOMY 99.7 55 22 143/74 97% ON RA IS;IVF D5 @ 50 ML/HR DILAUDID IV Q3 HR PRN NORCO PO Q4 HR PRN 3E MED SURG STATUS DCP;PATIENT IS FROM HOME PLAN;ENCOURAGE AMBULATION ENCOURAGE INCENTIVE SPIROMETER PAIN CONTROL
[2020-01-24 16:00] VITALS: BP 150/81
--- NOTE | 2020-01-24 19:48 | NUR ---
HAND-OFF: Report given to Aubree DILLARD, pt stable.
[2020-01-24 20:00] VITALS: BP 149/78
--- NOTE | 2020-01-25 02:03 | NUR ---
RNURSE NOTES: Received report from Sonia DILLARD, A/A/O, No apparent distress, breathing regular and unlabored, pt has RT hand 24G saline locked ,patent and flushes easily , call light within reach, will continue with plan of care
[2020-01-25 04:00] VITALS: BP 158/79
[2020-01-25] MEDS: HYDROcodone/Acetamin 5/325 tab ORAL PRN ×3 (05:15→22:13)
[2020-01-25 06:07] LABS: BASOPHILS % (AUTO) 0.4 % (0.0-2.0); EOSINOPHILS % (AUTO) 5.1 % (0.0-3.0); HEMATOCRIT 32.9 % (37.0-47.0); HEMOGLOBIN 11.2 G/DL (12.0-16.0); LYMPHOCYTES % (AUTO) 20.2 % (20.0-45.0); MEAN CORPUSCULAR VOLUME 76 FL (80-99); MONOCYTES % (AUTO) 9.4 % (1.0-10.0); NEUTROPHILS % (AUTO) 64.8 % (45.0-75.0); PLATELET COUNT 219 K/UL (150-450); RED BLOOD COUNT 4.32 M/UL (4.20-5.40); RED CELL DISTRIBUTION WIDTH 12.6 % (11.6-14.8); WHITE BLOOD COUNT 6.8 K/UL (4.8-10.8)
[2020-01-25 06:13] LABS: ANION GAP 7 mmol/L (5-15); BLOOD UREA NITROGEN 11 mg/dL (7-18); CALCIUM 8.9 MG/DL (8.5-10.1); CARBON DIOXIDE 31 MMOL/L (21-32); CHLORIDE 104 MMOL/L (98-107); CREATININE 0.9 MG/DL (0.55-1.30); POTASSIUM 3.7 MMOL/L (3.5-5.1); SODIUM 141 MMOL/L (136-145)
[2020-01-25] MEDS: NovoLOG Insulin Flexpen SUBQ SCH ×4 (06:30→21:00)
--- NOTE | 2020-01-25 07:30 | NUR ---
HAND-OFF: Report given to NISHANT Monte. Pt in stable condition.
--- NOTE | 2020-01-25 07:35 | NUR ---
NURSE NOTES: Handoff received from Bairon DILLARD. Patient is awake and alert and sitting up in chair, no signs of distress noted. Right hand IV is patent and asymptomatic, saline locked. Patient reports pain level 3. Patient instructed to use call perez if she needs help, verbalized understanding. Bed is low and locked, side rails up x2, call light within reach.
[2020-01-25 08:00] VITALS: BP 138/72
[2020-01-25] MEDS: Docusate 100mg cap ORAL SCH ×2 (08:50→17:24)
--- NOTE | 2020-01-25 09:00 | NUR ---
NURSE NOTES: Patient reports inability to move bowels, called Dr. Payton regarding a new laxative. MD ordered MOM 30 prn daily, will administer as ordered.
--- NOTE | 2020-01-25 09:04 | Pulmonology Progress Note ---
Subjective Interval Events: None new Constitutional: Reports: no symptoms HEENT: Repors: no symptoms Respiratory: Reports: no symptoms Cardiovascular: Reports: no symptoms Gastrointestinal/Abdominal: Reports: no symptoms Allergies: Coded Allergies: PENICILLINS (Verified Allergy, Severe, Rash;swelling, 01/19/20) Objective Last 24 Hour Vital Signs Date Time Temp Pulse Resp B/P (MAP) Pulse Ox O2 Delivery O2 Flow Rate FiO2 01/25/20 08:00 98.2 19 138/72 (94) 98 01/25/20 04:00 98.5 18 158/79 (105) 96 01/24/20 21:00 Room Air 01/24/20 20:00 98.5 70 18 149/78 (101) 98 01/24/20 16:00 99.7 60 19 150/81 (104) 97 01/24/20 12:00 99.0 57 19 143/74 (97) 97 Intake and Output 01/24/20 01/25/20 19:00 07:00 Intake Total 1440 ml Balance 1440 ml Intake Oral 1440 ml # Voids 1 General Appearance: no acute distress HEENT: normocephalic Respiratory: chest wall non-tender Cardiovascular: normal peripheral pulses Abdomen: normal bowel sounds Laboratory Tests 01/25/20 05:15: White Blood Count 6.8, Red Blood Count 4.32, Hemoglobin 11.2L, Hematocrit 32.9L , Mean Corpuscular Volume 76L, Mean Corpuscular Hemoglobin 25.9L, Mean Corpuscular Hemoglobin Concent 34.0, Red Cell Distribution Width 12.6, Platelet Count 219, Mean Platelet Volume 8.3, Neutrophils (%) (Auto) 64.8, Lymphocytes (% ) (Auto) 20.2, Monocytes (%) (Auto) 9.4, Eosinophils (%) (Auto) 5.1H, Basophils (%) (Auto) 0.4, Sodium Level 141, Potassium Level 3.7, Chloride Level 104, Carbon Dioxide Level 31, Anion Gap 7, Blood Urea Nitrogen 11, Creatinine 0.9, Estimat Glomerular Filtration Rate > 60, Glucose Level 96, Calcium Level 8.9 Current Medications Medications (Trade) Dose Ordered Sig/[place] Route PRN Reason Start Time Stop Time Status Last Admin Dose Admin Acetaminophen (Tylenol) 650 mg Q4H PRN ORAL FEVER 01/21/20 14:25 02/20/20 14:24 Acetaminophen (Tylenol) 650 mg Q6H PRN ORAL Mild Pain (Pain Scale 1-3) 01/21/20 14:25 02/20/20 14:24 01/24/20 13:04 Acetaminophen/ Hydrocodone Bitart ([place] 5/325) 1 tab Q4H PRN ORAL Moderate Pain (Pain Scale 4-6) 01/21/20 14:26 01/28/20 14:25 01/25/20 05:15 Dextrose (Dextrose 50%) 25 ml Q30M PRN IV Hypoglycemia 01/21/20 21:15 04/20/20 21:14 Dextrose (Dextrose 50%) 50 ml Q30M PRN IV Hypoglycemia 01/21/20 21:15 04/20/20 21:14 Diphenhydramine HCl (Benadryl) 25 mg Q6H PRN IVP Itching 01/22/20 10:15 02/21/20 10:14 01/22/20 11:10 Docusate Sodium (Colace) 100 mg TWICE A DAY ORAL 01/21/20 18:00 02/20/20 17:59 01/25/20 08:50 Hydromorphone HCl (Dilaudid) 2 mg Q3H PRN IVP pain score 7-10 01/21/20 14:26 01/28/20 14:25 01/25/20 01:49 Insulin Aspart (NovoLOG) BEFORE MEALS AND HS SUBQ 01/21/20 22:00 04/20/20 21:59 01/22/20 07:04 Ondansetron HCl (Zofran) 4 mg Q6H PRN IVP Nausea & Vomiting 01/21/20 14:25 02/20/20 14:24 01/25/20 08:49 Temazepam (RestoriL) 7.5 mg QHS PRN ORAL Insomnia 01/21/20 21:00 01/28/20 20:59 01/24/20 23:22 Assessment/Plan Assessment/Plan IMPRESSION: 1. Postoperative day #4, status post nephrectomy. 2. Hypertension. 3. Diabetes mellitus. 4. Anemia. DISCUSSION: Continue postoperative care. Diabetes monitoring. I will follow. Diet per surgery Labs reviewed; normal and improved Likely dc home today Laney Queen Omar Syed MD Jan 25, 2020 09:04
[2020-01-25] MEDS ORDERED: Milk of Magnesia 30ml Ud ORAL PRN (10:15)
[2020-01-25 12:00] VITALS: BP 134/76
[2020-01-25 16:02] VITALS: BP 148/85
--- NOTE | 2020-01-25 17:42 | Surgery Progress Note ---
Surgery Progress Note Subjective Symptoms: improved, tolerating diet, voiding well, passing flatus Objective Last 24 Hour Vital Signs Date Time Temp Pulse Resp B/P (MAP) Pulse Ox O2 Delivery O2 Flow Rate FiO2 01/25/20 16:02 99.0 62 20 148/85 (106) 99 01/25/20 12:00 97.1 66 21 134/76 (95) 98 01/25/20 09:00 Room Air 01/25/20 08:00 98.2 19 138/72 (94) 98 01/25/20 04:00 98.5 18 158/79 (105) 96 01/24/20 21:00 Room Air 01/24/20 20:00 98.5 70 18 149/78 (101) 98 I&O Intake and Output 01/24/20 01/25/20 19:00 07:00 Intake Total 1440 ml Balance 1440 ml Intake Oral 1440 ml # Voids 1 Dressing: dry Wound: clean Cardiovascular: RSR Respiratory: clear Abdomen: soft, present bowel sounds, non-distended Extremities: no edema, no tenderness, no cyanosis Laboratory Tests Test 01/25/20 05:15 White Blood Count 6.8 K/UL (4.8-10.8) Red Blood Count 4.32 M/UL (4.20-5.40) Hemoglobin 11.2 G/DL (12.0-16.0) L Hematocrit 32.9 % (37.0-47.0) L Mean Corpuscular Volume 76 FL (80-99) L Mean Corpuscular Hemoglobin 25.9 PG (27.0-31.0) L Mean Corpuscular Hemoglobin Concent 34.0 G/DL (32.0-36.0) Red Cell Distribution Width 12.6 % (11.6-14.8) Platelet Count 219 K/UL (150-450) Mean Platelet Volume 8.3 FL (6.5-10.1) Neutrophils (%) (Auto) 64.8 % (45.0-75.0) Lymphocytes (%) (Auto) 20.2 % (20.0-45.0) Monocytes (%) (Auto) 9.4 % (1.0-10.0) Eosinophils (%) (Auto) 5.1 % (0.0-3.0) H Basophils (%) (Auto) 0.4 % (0.0-2.0) Sodium Level 141 MMOL/L (136-145) Potassium Level 3.7 MMOL/L (3.5-5.1) Chloride Level 104 MMOL/L (98-107) Carbon Dioxide Level 31 MMOL/L (21-32) Anion Gap 7 mmol/L (5-15) Blood Urea Nitrogen 11 mg/dL (7-18) Creatinine 0.9 MG/DL (0.55-1.30) Estimat Glomerular Filtration Rate > 60 mL/min (>60) Glucose Level 96 MG/DL (74-106) Calcium Level 8.9 MG/DL (8.5-10.1) Plan Problems: (1) Right renal mass Assessment & Plan: 59 year old female s/p radical right nephrectomy for mass pending path c/o abd pain decreased appetite exam noted patient not motivated to move much post op will encourage ambulation and incentive spirometry d/c okay trial oral intake trend labs rx as written complaints anticipated post op will follow closely thank you murrell out ambulatory tolerating clears not ready for d/c needs better pain control d/c [plan for tomorrow discussed with patient improving tolerating diet Vladimir Payton Jan 25, 2020 17:42
--- NOTE | 2020-01-25 19:20 | NUR ---
HAND-OFF: Report given to Bairon DILLARD.
--- NOTE | 2020-01-25 19:25 | NUR ---
NURSE NOTES: Received report from Opal RN, A/A/O, No apparent distress, breathing regular and unlabored, pt has RT hand IV patent and flushes easily , call light within reach, side rales up x2, will continue with plan of care
[2020-01-25 20:00] VITALS: BP 126/62
[2020-01-26] VITALS: BP 138/71
[2020-01-26] MEDS: HYDROcodone/Acetamin 5/325 tab ORAL PRN (02:27)
[2020-01-26] MEDS: NovoLOG Insulin Flexpen SUBQ SCH ×2 (05:47→11:30)
--- NOTE | 2020-01-26 07:35 | NUR ---
HAND-OFF: Report given to Ronald Bragg. Pt Stable.
[2020-01-26 08:00] VITALS: BP 111/74
--- NOTE | 2020-01-26 08:02 | NUR ---
NURSE NOTES: Received report from Aubree RN. Patient is awake and oriented, in no apparent distress, reporting abdominal pain related to difficulty having BM, encouraged patient to ambulate and will administer PRN MOM per order. IV intact. Side rails upx2, bed low and locked, call light within reach.
[2020-01-26] MEDS: Docusate 100mg cap ORAL SCH (08:59)
--- NOTE | 2020-01-26 10:19 | Pulmonology Progress Note ---
Subjective Interval Events: None new Constitutional: Reports: no symptoms HEENT: Repors: no symptoms Respiratory: Reports: no symptoms Cardiovascular: Reports: no symptoms Gastrointestinal/Abdominal: Reports: no symptoms Allergies: Coded Allergies: PENICILLINS (Verified Allergy, Severe, Rash;swelling, 01/19/20) Objective Last 24 Hour Vital Signs Date Time Temp Pulse Resp B/P (MAP) Pulse Ox O2 Delivery O2 Flow Rate FiO2 01/26/20 09:00 Room Air 01/26/20 08:00 98.7 68 16 111/74 (86) 97 01/26/20 00:00 98.7 20 138/71 (93) 96 01/25/20 21:00 Room Air 01/25/20 20:00 99.4 62 20 126/62 (83) 96 01/25/20 16:02 99.0 62 20 148/85 (106) 99 01/25/20 12:00 97.1 66 21 134/76 (95) 98 Intake and Output 01/25/20 01/26/20 19:00 07:00 Intake Total 780 ml Balance 780 ml Intake Oral 780 ml # Voids 3 2 General Appearance: no acute distress HEENT: normocephalic Respiratory: chest wall non-tender Cardiovascular: normal peripheral pulses Abdomen: normal bowel sounds Current Medications Medications (Trade) Dose Ordered Sig/[place] Route PRN Reason Start Time Stop Time Status Last Admin Dose Admin Acetaminophen (Tylenol) 650 mg Q4H PRN ORAL FEVER 01/21/20 14:25 02/20/20 14:24 Acetaminophen (Tylenol) 650 mg Q6H PRN ORAL Mild Pain (Pain Scale 1-3) 01/21/20 14:25 02/20/20 14:24 01/26/20 08:59 Acetaminophen/ Hydrocodone Bitart ([place] 5/325) 1 tab Q4H PRN ORAL Moderate Pain (Pain Scale 4-6) 01/21/20 14:26 01/28/20 14:25 01/26/20 02:27 Dextrose (Dextrose 50%) 25 ml Q30M PRN IV Hypoglycemia 01/21/20 21:15 04/20/20 21:14 Dextrose (Dextrose 50%) 50 ml Q30M PRN IV Hypoglycemia 01/21/20 21:15 04/20/20 21:14 Diphenhydramine HCl (Benadryl) 25 mg Q6H PRN IVP Itching 01/22/20 10:15 02/21/20 10:14 01/22/20 11:10 Docusate Sodium (Colace) 100 mg TWICE A DAY ORAL 01/21/20 18:00 02/20/20 17:59 01/26/20 08:59 Hydromorphone HCl (Dilaudid) 2 mg Q3H PRN IVP pain score 7-10 01/21/20 14:26 01/28/20 14:25 01/25/20 01:49 Insulin Aspart (NovoLOG) BEFORE MEALS AND HS SUBQ 01/21/20 22:00 04/20/20 21:59 01/22/20 07:04 Magnesium Hydroxide (Mom) 30 ml DAILYPRN PRN ORAL Constipation 01/25/20 10:15 02/24/20 10:14 01/25/20 11:34 Ondansetron HCl (Zofran) 4 mg Q6H PRN IVP Nausea & Vomiting 01/21/20 14:25 02/20/20 14:24 01/25/20 08:49 Temazepam (RestoriL) 7.5 mg QHS PRN ORAL Insomnia 01/21/20 21:00 01/28/20 20:59 01/24/20 23:22 Assessment/Plan Assessment/Plan IMPRESSION: 1. Postoperative day #5, status post nephrectomy. 2. Hypertension. 3. Diabetes mellitus. 4. Anemia. DISCUSSION: Continue postoperative care. Diabetes monitoring. I will follow. Diet per surgery Added Fleets enema Labs reviewed; normal and improved Likely dc home today Laney Queen Omar Syed MD Jan 26, 2020 10:19
--- NOTE | 2020-01-26 10:19 | NUR ---
NURSE NOTES: Notified Dr. Desouza patient is having pain related to constipation. Received order for fleets enema x1. Order read back and entered. Will carry out.
[2020-01-26] MEDS ORDERED: NORCO 5-325 TA1 EAC1 ORAL (10:21)
[2020-01-26] MEDS ORDERED: COLACE100 MG ORAL (10:21)
[2020-01-26] MEDS ORDERED: Fleet's Enema 133ml RECTAL SCH (10:30)
--- NOTE | 2020-01-26 11:02 | NUR ---
NURSE NOTES: Called Dr. Yoon's office. Follow up appointment arranged for Sunday.
--- NOTE | 2020-01-26 11:41 | Surgery Progress Note ---
Surgery Progress Note Subjective Symptoms: improved, tolerating diet, voiding well, passing flatus, BM, pain decreased Objective Last 24 Hour Vital Signs Date Time Temp Pulse Resp B/P (MAP) Pulse Ox O2 Delivery O2 Flow Rate FiO2 01/26/20 09:00 Room Air 01/26/20 08:00 98.7 68 16 111/74 (86) 97 01/26/20 00:00 98.7 20 138/71 (93) 96 01/25/20 21:00 Room Air 01/25/20 20:00 99.4 62 20 126/62 (83) 96 01/25/20 16:02 99.0 62 20 148/85 (106) 99 01/25/20 12:00 97.1 66 21 134/76 (95) 98 I&O Intake and Output 01/25/20 01/26/20 19:00 07:00 Intake Total 780 ml Balance 780 ml Intake Oral 780 ml # Voids 3 2 Dressing: dry Wound: clean Cardiovascular: RSR Respiratory: clear Abdomen: soft, tenderness - improving, present bowel sounds, non-distended Extremities: no edema, no tenderness, no cyanosis Plan Problems: (1) Right renal mass Assessment & Plan: 59 year old female s/p radical right nephrectomy for mass pending path c/o abd pain decreased appetite exam noted patient not motivated to move much post op will encourage ambulation and incentive spirometry d/c okay trial oral intake trend labs rx as written complaints anticipated post op will follow closely thank you murrell out ambulatory tolerating clears not ready for d/c needs better pain control d/c [plan for tomorrow discussed with patient improving tolerating diet d/c home rx as written f/u with Dr. Olsen Sunday Vladimir Payton Jan 26, 2020 11:41
[2020-01-26 12:00] VITALS: BP 112/69
--- NOTE | 2020-01-26 12:56 | NUR ---
NURSE NOTES: Patient discharged without distress. Patient had BM x2 s/p enema administration and reported relief from constipation pain. Patient provided with Rx and signed for, follow up appointment arranged. Patient provided with discharge education in patient's [place] language. Discharge instructions provided to patient in [place] with translation assistance from Zelalem Silverio RN ([id number]). Patient verbalized understanding of discharge education. IV removed intact. Patient's medications from pharmacy given to patient, all belongings given to patient. Patient provided with front wheel walker for home use. Patient escorted to private vehicle.
--- NOTE | 2020-01-26 14:35 | NUR ---
*-* INSURANCE *-* UPDATED CLINICALS AND REVIEWS HAVE BEEN FAXED TO: [facility] Ref# [id number] ph#[phone] fax#[phone] & MARINA ph#[phone] fax#[phone]
--- NOTE | 2020-01-27 11:17 | Discharge Summary ---
Discharge Summary Hospital Course Date of Admission Jan 21, 2020 at 06:59 Date of Discharge Jan 26, 2020 at 12:50 Admitting Diagnosis Large right renal mass Reason for Hospitalization: Elective surgery HPI Celena Hernandes is a 59 year old female who was admitted on Jan 21, 2020 at 06:59 for Right Renal Mass Consultations Dr. Payton -general surgeon Dr. Desouza -IM/pulmo- Procedures s/p 01/21/[address] Yoon Laparoscopic radical nephrectomy. Hospital Course status post surgery course of recovery uneventful initially IV fluids provided s/p perioperative antibiotics laparoscopic incisions remained clean ,dry and intact pain management was addressed pain was controlled remained hemodynamically stable no need for anti HTN medication, BP remained stable ambulated with PT fall precautions maintained; DVT prophylaxis provided use of incentive spirometry was encouraged while in the bed tolerated diet , IV fluids discontinued GI prophylaxis provided antiemetics were on board as needed blood sugar was managed with sliding scale of insulin voided freely bowel regimen instituted , patitn also received enema, patient was able to have BM x 2 prior to discharge hemoglobin and hematocrit were closely monitored with goal to keep hemoglobin above 7 no need for transfusion; prior to discharge hemoglobin is 11.2, hematocrit 32.9. 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 FINAL DIAGNOSES Large right renal mass s/p Laparoscopic radical nephrectomy HTN Diabetes mellitus Anemia Constipation Discharge Medications New Medications: Docusate Sodium* (Colace*) 100 Mg Capsule 100 MG ORAL TWICE A DAY for 30 Days, #60 CAP Hydrocodone Bit/Acetaminophen 5-325* ([place] 5-325 Tablet*) 1 Each Tablet 1 TAB ORAL Q4H PRN for 10 Days, #30 TAB Continued Medications: Amlodipine Besylate* (Amlodipine Besylate*) 10 Mg Tablet 10 MG ORAL DAILY for as prescribed, TAB (This prescription has been renewed) Atorvastatin Calcium* (Atorvastatin Calcium*) 20 Mg Tablet 10 MG ORAL BEDTIME for as prescribed, TAB (This prescription has been renewed) Hydrochlorothiazide* (Hydrochlorothiazide*) 12.5 Mg Tablet 12.5 MG ORAL DAILY for as prescribed, TAB (This prescription has been renewed) Losartan Potassium* (Losartan Potassium*) 50 Mg Tablet 100 MG ORAL DAILY for as prescribed, TAB (This prescription has been renewed) Metformin Hcl* (Glucophage*) 500 Mg Tablet 500 MG ORAL TWICE A DAY for as prescribed, TAB (This prescription has been renewed) Discharge Condition Upon Discharge: stable Discharge Vital Signs Last Vital Signs Date Time Temp Pulse Resp B/P (MAP) Pulse Ox O2 Delivery O2 Flow Rate FiO2 01/26/20 12:00 98.4 60 16 112/69 (83) 97 01/26/20 09:00 Room Air 01/21/20 21:00 2.0 Discharge Disposition Patient was discharged home Discharge Instructions Discharge Instructions Special Instructions I have been assigned to complete a D/C Summary on this account. I was not involved in the patient management Piedad Hernandez NP Jan 27, 2020 11:17
--- NOTE | 2020-01-27 16:04 | NUR ---
*-* INSURANCE *-* DISCHARGE SUMMARY HAS BEEN FAXED TO: [facility] Ref# [id number] ph#[phone] fax#[phone] & MARINA ph#[phone] fax#[phone]
== END 2020-01-26 12:50 | disposition home or self-care (01) | DRG 443 ==
LOC: SDSOVERFLO 06:59 → 3E 14:13
PROC: 0TT04ZZ Resection of Right Kidney, Percutaneous Endoscopic Approach (ICD-10-PCS; principal; 2020-01-21 10:00)
DX: D49.511 Neoplasm of unspecified behavior of right kidney (principal); I10 Essential (primary) hypertension; D64.9 Anemia, unspecified; E11.9 Type 2 diabetes mellitus without complications; E78.5 Hyperlipidemia, unspecified; Z79.84 Long term (current) use of oral hypoglycemic drugs
CPT/HCPCS: 36415; 80048; 82962; 85007; 85025; 86850; 86900; 86901; 86920; 87081; 94003; 94150; J1815; J2250; J2370; J2405; J2710; J2765; J7030